=== PATIENT | male | born 1965 | race Hispanic/Latino ===

== ENCOUNTER 2022-11-13 21:34 | Emergency (ER) | payer OTHER, SELFPAY ==
[2022-11-13 21:37] VITALS: BP 148/82; PULSE 78; RESP 18; TEMP 36.4; O2SAT 99
--- NOTE | 2022-11-13 21:56 | PC.NURSE ---
Pt is lux[place]ish speaking. Daughter at bedside and feels comfortable translating for pt.
--- NOTE | 2022-11-13 21:56 | PC.NURSE ---
Pt denies headache, dizziness, but reports he has blurred vision in his left eye. Pt reports left eye irritation and itching. Pt also has complaints of left facial droop.
[2022-11-13 22:05] VITALS: BP 124/82; PULSE 81; RESP 15; O2SAT 96
--- NOTE | 2022-11-13 22:31 | ED.GENADULT ---
HPI - General Adult General Chief complaint: Neuro Symptoms/Deficit Stated complaint: left side facial numbness Time Seen by Provider: 11/13/22 21:50 History of Present Illness HPI narrative: Patient a 57-year-old gentleman who presents the emergency department with chief complaint of left-sided facial droop. Patient's family noticed that yesterday he was having some asymmetry of his face and involving the forehead patient states that he had a similar episode like this before in the past and was given medications. Patient reports that he has no weakness in his arms or legs reports no pain denies change in mental status. Patient states had no viral syndrome. Related Data Allergies Allergy/AdvReac Type Severity Reaction Status Date / Time No Known Allergies Allergy Unverified 07/10/22 09:58 Review of Systems Review of Systems: A 10 system review of systems was completed on the patient and is negative except for what is stated in the HPI. Nursing and ancillary documentation was reviewed. Exam Narrative: GENERAL: Well-appearing, well-nourished, and in no acute distress. HEAD: Normocephalic, atraumatic. EYES: PERRLA and EOMI. ENT: Nares clear, no rhinorrhea or epistaxis. Mucous membranes moist. NECK: Supple. CHEST: Clear to auscultation. No respiratory distress. HEART: Regular rate and rhythm. No murmur heard. Normal peripheral pulses. ABDOMEN: Soft, nontender, nondistended, normal active bowel sounds. EXTREMITIES: Normal range of motion. No edema. SKIN: Warm, dry, no rash. NEURO: No focal deficits except for left-sided facial droop involving forehead. alert and oriented x3. PSYCH: Normal mood and affect. Course Vital Signs Vital signs: Vital Signs Temperature 36.4 C 11/13/22 21:37 Pulse Rate 78 11/13/22 21:37 Respiratory Rate 18 11/13/22 21:37 Blood Pressure 148/82 H 11/13/22 21:37 Pulse Oximetry 99 11/13/22 21:37 Oxygen Delivery Room Air 11/13/22 21:37 Temperature 36.4 C 11/13/22 21:37 Pulse Rate 81 11/13/22 22:05 Respiratory Rate 15 11/13/22 22:05 Blood Pressure 124/82 11/13/22 22:05 Pulse Oximetry 96 11/13/22 22:05 Oxygen Delivery Room Air 11/13/22 21:37 Medical Decision Making MDM Narrative Medical decision making narrative: Differential diagnosis includes Mosley's palsy, CVA Given the involvement of the forehead muscles and 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 Vital Signs Vital Signs: Vital Signs Temperature 36.4 C 11/13/22 21:37 Pulse Rate 78 11/13/22 21:37 Respiratory Rate 18 11/13/22 21:37 Blood Pressure 148/82 H 11/13/22 21:37 Pulse Oximetry 99 11/13/22 21:37 Oxygen Delivery Room Air 11/13/22 21:37 Temperature 36.4 C 11/13/22 21:37 Pulse Rate 81 11/13/22 22:05 Respiratory Rate 15 11/13/22 22:05 Blood Pressure 124/82 11/13/22 22:05 Pulse Oximetry 96 11/13/22 22:05 Oxygen Delivery Room Air 11/13/22 21:37 Discharge Plan Discharge Clinical Impression: Mosley's palsy Patient Disposition: Home, Self-Care Condition: Stable Instructions: Antibiotic Form, Mosley Palsy (ED) Patient Language: Maori Prescriptions: New prednisone 20 mg tablet 60 mg PO DAILY 5 Days Qty: 15 0RF valacyclovir 1 gram tablet 1,000 mg PO Q8H 7 Days Qty: 21 0RF Follow-up/Referrals: PHYSICIAN,[employer] [employer] OPERATOR [Primary Care Provider] - Kindra Freeman DO [Physician] - Time of Disposition: 22:35
[2022-11-13] MEDS: predniSONE 20 MG TABLET 60 MG PO (22:54)
[2022-11-13] MEDS: valACYclovir HCL 500 MG TABLET 1000 MG PO (22:54)
[2022-11-13 22:56] VITALS: BP 129/81; PULSE 89; RESP 17; O2SAT 100
== END 2022-11-13 23:18 | disposition home or self-care (01) ==
PROVIDERS: Emergency Provider Emergency Medicine
DX: G51.0 Bell's palsy (principal)
CPT/HCPCS: 99283; A9270; J7512

== ENCOUNTER 2022-12-31 09:41 | Emergency (ER) | payer OTHER, SELFPAY ==
[2022-12-31 09:45] VITALS: BP 125/74; PULSE 78; RESP 16; TEMP 36.5; O2SAT 99
--- NOTE | 2022-12-31 12:26 | ED.GENADULT ---
HPI - General Adult General Chief complaint: Ear Stated complaint: ear pain Time Seen by Provider: 12/31/22 11:18 History of Present Illness HPI narrative: Jesus Riddle is a 57 y/o male who presents with family who he chooses to interpret for him. His daughter states that he has had two weeks of left ear irritatoin/ intermittent muffled with some ringing off and on in his ear. He denies fever/chills/cough/ shortness of breath/ chest pain. Denies headache. He contributes these symptoms to wearing ear plugs everyday at work and thinks it might be infected now. Related Data Allergies Allergy/AdvReac Type Severity Reaction Status Date / Time No Known Allergies Allergy Unverified 12/31/22 12:28 Review of Systems Review of Systems: CONSTITUTIONAL: Denies fever, chills, or sweats. EYES: Denies visual changes, redness, or discharge. ENT: Denies rhinorrhea, congestion, sore throat, or otalgia, complains of irritation to left ear/ muffled hearing in the left ear and intermittent ringing in the ear. CARDIOVASCULAR: Denies chest pain, palpitations, or edema. RESPIRATORY: Denies cough or dyspnea. GASTROINTESTINAL: Denies abdominal pain, nausea, vomiting, or diarrhea. GENITOURINARY: Denies dysuria or hematuria. SKIN: Denies rash or itching. MUSCULOSKELETAL: Denies back pain, joint pain, or myalgia. NEUROLOGIC: Denies headache, numbness, dizziness, or weakness. PSYCHIATRIC: Denies anxiety or depression. Exam Narrative: GENERAL: Well-appearing, well-nourished, and in no acute distress. HEAD: Normocephalic, atraumatic. EYES: PERRLA and EOMI. ENT: Nares clear, no rhinorrhea or epistaxis. Mucous membranes moist. Oropharynx without tonsillar hypertrophy exudate or other lesions. Left ear noted to have effusion, cerumen non impaceted bilaterally NECK: Supple. No adenopathy or masses. No carotid bruits or JVD CHEST: Clear to auscultation. No respiratory distress. No wheezes rales or rhonchi HEART: Regular rate and rhythm. No murmur heard. Normal peripheral pulses. ABDOMEN: Soft, nontender, nondistended, normal active bowel sounds. EXTREMITIES: Normal range of motion. No edema. SKIN: Warm, dry, no rash. NEURO: No focal deficits. Alert and oriented x3. PSYCH: Normal mood and affect. Course Vital Signs Vital signs: Vital Signs Temperature 36.5 C 12/31/22 09:45 Pulse Rate 78 12/31/22 09:45 Respiratory Rate 16 12/31/22 09:45 Blood Pressure 125/74 12/31/22 09:45 Pulse Oximetry 99 12/31/22 09:45 Temperature 36.5 C 12/31/22 09:45 Pulse Rate 78 12/31/22 09:45 Respiratory Rate 16 12/31/22 09:45 Blood Pressure 125/74 12/31/22 09:45 Pulse Oximetry 99 12/31/22 09:45 Medical Decision Making MDM Narrative Medical decision making narrative: On exam pt is in no acute distress Right TM pearly alvarez non painful Left TM noted to have an effusion/ concern for infection Nares clear oral pharynx pink / intact no erythema/ swelling/exudate No palpable lymphadenopathy noted lung sounds clear abdomen soft NO nausea/vomiting/ fever Plan to d/c home on antibiotics and zyrtec with referral to ENT for re-evaluatoin Discussed this plan with family and pt - all agree with plan and deny having any further questions. Differential Diagnosis Differential Diagnosis: otitis media/ otitis effusion/ URI/ ruptured TM Medical Records Medical records reviewed: Yes I reviewed the external patient's medical records. Vital Signs Vital Signs: Vital Signs Temperature 36.5 C 12/31/22 09:45 Pulse Rate 78 12/31/22 09:45 Respiratory Rate 16 12/31/22 09:45 Blood Pressure 125/74 12/31/22 09:45 Pulse Oximetry 99 12/31/22 09:45 Temperature 36.5 C 12/31/22 09:45 Pulse Rate 78 12/31/22 09:45 Respiratory Rate 16 12/31/22 09:45 Blood Pressure 125/74 12/31/22 09:45 Pulse Oximetry 99 12/31/22 09:45 vitals reviewed by me. Discharge Plan Discharge Clin
[2022-12-31] MEDS: AMOXICILLIN/CLAVULANATE K 875-125 MG TAB 1 TABLET PO (13:04)
[2022-12-31] MEDS: LORATADINE 10 MG TABLET PO (13:04)
== END 2022-12-31 13:10 | disposition home or self-care (01) ==
PROVIDERS: Emergency Provider Nurse Practitioner Family; PCP Physician Assistant
DX: H66.92 Otitis media, unspecified, left ear (principal)
CPT/HCPCS: 99283; A9270

== ENCOUNTER 2023-10-07 08:36 | Emergency (ER) | payer SELFPAY ==
[2023-10-07 08:43] VITALS: BP 149/103; PULSE 85; RESP 17; TEMP 36.6; O2SAT 98
--- NOTE | 2023-10-07 09:14 | ED.GENADULT ---
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 Reports he missed his appointment with his PCP and now is rescheduled, but not until October. Reports he needs his Metformin, Insulin and Simvastatin refilled. He also reports he has been having palpitations/ feels like his heart is racing. Ongoing over the last 5 months. Mostly when urinating. Denies fever, chest pain, shortness of breath, vomiting, or dysuria. Related Data Allergies Allergy/AdvReac Type Severity Reaction Status Date / Time No Known Allergies Allergy Unverified 12/31/22 12:28 Review of Systems Review of Systems: CONSTITUTIONAL: Denies fever CARDIOVASCULAR: Reports palpitations. Denies chest pain RESPIRATORY: Denies dyspnea. GASTROINTESTINAL: Denies abdominal pain, nausea, vomiting GENITOURINARY: Denies dysuria All systems reviewed & are unremarkable except as noted in HPI and below PMFSH Past Medical History Medical History (Updated 10/07/23 @ 14:01 by Chantelle Washington PA-C) History of diabetes mellitus History of hyperlipidemia Social History Social History (Updated 10/07/23 @ 09:44 by Chantelle Washington PA-C) Substance use: never Exam Narrative: GENERAL: Well-appearing, well-nourished, and in no acute distress. HEAD: Normocephalic, atraumatic. EYES: EOMI. CHEST: No respiratory distress. HEART: Regular rate EXTREMITIES: Normal range of motion. No edema. SKIN: Warm, dry, no rash. NEURO: No focal deficits. Alert and oriented x3. PSYCH: Normal mood and affect Course Course Emergency Course: Patient updated on his workup and agrees with plan of care Vital Signs Vital signs: Vital Signs Temperature 98 F 10/07/23 08:43 Pulse Rate 85 10/07/23 08:43 Respiratory Rate 17 10/07/23 08:43 Blood Pressure 149/103 H 10/07/23 08:43 Pulse Oximetry 98 10/07/23 08:43 Oxygen Delivery Room Air 10/07/23 08:43 Temperature 98 F 10/07/23 08:43 Pulse Rate 74 10/07/23 13:23 Respiratory Rate 18 10/07/23 13:23 Blood Pressure 144/89 H 10/07/23 13:23 Pulse Oximetry 99 10/07/23 13:23 Oxygen Delivery Room Air 10/07/23 08:43 Medical Decision Making MDM Narrative Medical decision making narrative: Patient presents to the emergency department for medication refill. Also endorsing some intermittent palpitations/ heart racing especially with urination. His vitals are stable health. Patient in normal sinus rhythm with rates in the 70s to 80s. CBC without concerning findings. Metabolic panel with some evidence of dehydration. This did improve after a L of IV fluids. Urine without evidence of infection. EKG shows normal sinus rhythm. Patient updated on his workup and agrees with plan of care. I did place an order for a Holter monitor to be placed for further evaluation of his palpitations. I also refilled his medication. He was instructed to have follow-up with his primary provider. He was given warnings to return to the ER Differential Diagnosis Differential Diagnosis: medication refill, dehydration, hyperglycemia, palpitations, presyncope, arrhythmia, electrolyte derangement Vital Signs Vital Signs: Vital Signs Temperature 98 F 10/07/23 08:43 Pulse Rate 85 10/07/23 08:43 Respiratory Rate 17 10/07/23 08:43 Blood Pressure 149/103 H 10/07/23 08:43 Pulse Oximetry 98 10/07/23 08:43 Oxygen Delivery Room Air 10/07/23 08:43 Temperature 98 F 10/07/23 08:43 Pulse Rate 74 10/07/23 13:23 Respiratory Rate 18 10/07/23 13:23 Blood Pressure 144/89 H 10/07/23 13:23 Pulse Oximetry 99 10/07/23 13:23 Oxygen Delivery Room Air 10/07/23 08:43 Lab Data Lab results reviewed: Yes I revi
--- NOTE | 2023-10-07 09:39 | ECG_ITS ---
Test Date: 2023-10-07 09:51:29 Measurements Intervals [place] Rate: 76 P: 55 UT: 151 QRS: 22 QRSD: 90 T: 27 QT: 357 QTc: 401 Interpretive Statements SINUS RHYTHM No previous ECG available for comparison Electronically Signed On 10-07-2023 13:37:31 CDT by Everett Arteaga M.D.
[2023-10-07 09:57] LABS: Basophils Percent Auto 0.4 % (0.2-1.2); Eosinophils Absolute Auto 0.1 K/mm3 (0-0.3); Eosinophils Percent Auto 1.8 % (0-4.4); Hematocrit 46.6 % (42.0-52.0); Hemoglobin 15.9 g/dL (14.0-18.0); Immature Granulocyte Absolute 0.03 K/mm3 (0.00-0.031); Immature Granulocyte Percent A 0.4 % (0-0.5); Lymphocytes Absolute Auto 2.17 K/mm3 (0.9-3.2); Lymphocytes Percent Auto 29.6 % (18.3-44.2); Mean Corpuscular HGB Conc 34.1 g/dl (32-36); Mean Corpuscular Hemoglobin 29.1 pg (26-34); Mean Corpuscular Volume 85.2 fl (80-100); Mean Platelet Volume 10.4 fl (7.4-10.4); Monocytes Absolute Auto 0.6 K/mm3 (0.1-0.6); Monocytes Percent Auto 7.5 % (2.6-8.5); Neutrophils Absolute Auto 4.4 K/mm3 (1.3-6.7); Neutrophils Percent Auto 60.3 % (45.5-73.1); Platelet Count Result 183 k/mm3 (150-375); Red Blood Count 5.47 M/mm3 (4.6-6.20); White Blood Count 7.3 K/mm3 (4.5-10.0)
[2023-10-07 10:03] LABS: Appearance Urine Clear (Clear); Bilirubin Urine Negative (Negative); Blood Urine Negative (Negative); Color Urine Yellow (Yellow); Glucose Urine UA 3+ mg/dL (Negative); Ketones Urine 1+ mg/dL (Negative); Leukocyte Esterase Ur Negative LEU/UL (Negative); Nitrate Urine Negative (Negative); Protein Urine Negative (Negative); Specific Grav Ur 1.028 (1.001-1.035); Urobilinogen Urine 0.2 mg/dL (<2.0)
[2023-10-07 10:05] LABS: Add Urine Microscopic? YES
[2023-10-07 10:07] LABS: Alanine Aminotransferase 37 U/L (6-50); Albumin Level 4.9 g/dL (3.5-5.1); Alkaline Phosphatase 133 U/L (38-126); Anion Gap 13 mmol/L (4-12); Aspartate Amino Transferase 37 U/L (17-59); Bilirubin,Total 0.6 mg/dL (0.2-1.3); Blood Urea Nitrogen 20 mg/dL (9-20); Calcium 9.2 mg/dL (8.4-10.2); Carbon Dioxide 21 mmol/L (22-30); Chloride 105 mmol/L (98-107); Estimated CRCL calculation 95 ml/min; Estimated Glomerular Filt Rate > 60; Glucose 302 mg/dL (65-110); Sodium 139 mmol/L (137-145)
[2023-10-07] MEDS: SODIUM CHLORIDE 0.9% IV 1,000 ML 999 ML IV CONT (11:06)
[2023-10-07 11:07] VITALS: BP 139/86; PULSE 79; RESP 14; O2SAT 100
--- NOTE | 2023-10-07 11:19 | PC.NURSE ---
Report given to Bev CROWDER, all questions answered
[2023-10-07 13:23] VITALS: BP 144/89; PULSE 74; RESP 18; O2SAT 99
[2023-10-07 13:48] LABS: Anion Gap 12 mmol/L (4-12); Blood Urea Nitrogen 17 mg/dL (9-20); Carbon Dioxide 23 mmol/L (22-30); Chloride 108 mmol/L (98-107); Estimated CRCL calculation 95 ml/min; Estimated Glomerular Filt Rate > 60; Glucose 144 mg/dL (65-110); Potassium 3.9 mmol/L (3.4-5.0); Sodium 143 mmol/L (137-145)
== END 2023-10-07 15:18 | disposition home or self-care (01) ==
PROVIDERS: Emergency Provider Physician Assistant; PCP Physician Assistant
DX: Z76.0 Encounter for issue of repeat prescription (principal); R00.2 Palpitations; E11.9 Type 2 diabetes mellitus without complications; E78.5 Hyperlipidemia, unspecified
CPT/HCPCS: 36415; 80048; 80053; 81001; 85025; 93005; 96360; 99283; J7030